=== PATIENT | male | born 2000 | race African-American/Black ===

== ENCOUNTER 2018-07-31 20:01 | Emergency (ER) | payer OTHER ==
[~2018-07-31] VITALS: Ht 172.7 cm; Wt 104.3 kg
[2018-07-31] MEDS ORDERED: PENICILLIN G BENZATHINE LA 1.2 MU TBX IM ONE (20:41)
[2018-07-31] MEDS ORDERED: DEXAMETHASONE SOD PHOS 10 MG/1 ML VIAL IM ONE (20:45)
[2018-07-31] MEDS ORDERED: ACETAMINOPHEN/CODEINE ELIX 120-12 MG/5 ML UDC PO ONE (20:45)
[2018-07-31] MEDS ORDERED: ACETAMINOPHEN 325 MG TAB PO ONE (20:45)
[2018-07-31] MEDS ORDERED: IBUPROFEN 400 MG TAB PO ONE (20:45)
[2018-07-31] MEDS ORDERED: IBUPROFEN 600 MG TAB PO ONE (21:00)
[2018-07-31 21:51] VITALS: BP 132/48
== END 2018-07-31 21:54 | disposition home or self-care (01) ==
LOC: ER 20:01
DX: J03.00 Acute streptococcal tonsillitis, unspecified (principal)
CPT/HCPCS: 99283; J0561; J1100

== ENCOUNTER 2018-11-06 11:23 | Emergency (ER) | payer OTHER ==
[~2018-11-06] VITALS: Ht 172.7 cm; Wt 95.3 kg
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
[2018-11-06] MEDS ORDERED: DEXAMETHASONE SOD PHOS 10 MG/1 ML VIAL IM ONE (11:30)
== END 2018-11-06 11:44 | disposition home or self-care (01) ==
LOC: ER 11:23
DX: J02.9 Acute pharyngitis, unspecified (principal)
CPT/HCPCS: 99282; J1100